=== PATIENT | female | born 1990 | race Caucasian/White ===

== ENCOUNTER 2018-03-15 05:43 | Day surgery (SDC) | payer OTHER ==
[2018-03-15] MEDS ORDERED: NEOMYC/POLYMYX/BACIT 30 GM OINT (06:56)
[2018-03-15] MEDS ORDERED: POLYMYXIN/BACITRACIN 1L IRRIG (06:56)
[2018-03-15 07:00] LABS: ADD MAN DIFF? NO
[2018-03-15] MEDS ORDERED: ACETAMINOPHEN 1000 MG/100 ML IVPB (07:00)
[2018-03-15] MEDS ORDERED: CEFAZOLIN 1 GM INJ ×2 (07:00→11:17)
[2018-03-15] MEDS ORDERED: PROPOFOL 200 MG INJ (07:00)
[2018-03-15 07:01] LABS: BASOPHILS % 0.3 % (0.0-2.0); EOSINOPHILS # 0.2 10^3/ul (0.0-0.5); EOSINOPHILS % 2.9 % (0.0-7.0); HEMATOCRIT 41.7 % (37.0-47.0); HEMOGLOBIN 13.8 g/dl (12.0-16.0); LYMPHOCYTES # 2.5 10^3/ul (0.8-2.9); LYMPHOCYTES % 33.9 % (15.0-51.0); MEAN CORPUSCULAR HGB CONC 33.1 g/dl (32.0-37.0); MEAN CORPUSCULAR VOLUME 90.7 fl (82.0-101.0); MEAN PLATELET VOLUME 11.5 fl (7.4-10.4); MONOCYTE # 0.5 10^3/ul (0.3-0.9); MONOCYTES % 7.2 % (0.0-11.0); NEUTROPHIL # 4.1 10^3/ul (1.6-7.5); NEUTROPHILS % 55.3 % (39.0-77.0); PLATELET COUNT 213 10^3/UL (140-415); RED CELL DISTRIBUTION WIDTH 12.8 % (11.5-14.5)
[2018-03-15 07:01] LABS: WHITE BLOOD COUNT 7.5 10^3/ul (4.8-10.8)
[2018-03-15] MEDS ORDERED: MIDAZOLAM 1 MG/ML 2 ML INJ (07:16)
[2018-03-15] MEDS ORDERED: ROCURONIUM 50 MG INJ ×2 (07:16→11:17)
[2018-03-15] MEDS ORDERED: PROPOFOL 20 ML (07:16)
[2018-03-15] MEDS ORDERED: ROPIVACAINE 0.5 % 30 ML VIAL (07:17)
[2018-03-15 07:19] LABS: ALANINE AMINOTRANSFERASE 31 IU/L (13-69); ALBUMIN/GLOBULIN RATIO 1.33; ALKALINE PHOSPHATASE 49 IU/L (42-121); ANION GAP 11 (8-16); ASPARTATE AMINO TRANSFERASE 18 IU/L (15-46); BILIRUBIN,INDIRECT 0.1 mg/dl (0-1.1); BILIRUBIN,TOTAL 0.1 mg/dl (0.2-1.3); BLOOD UREA NITROGEN 17 mg/dl (7-20); CALCIUM 9.4 mg/dl (8.4-10.2); CARBON DIOXIDE 26 mmol/L (21-31); CHLORIDE 109 mmol/L (97-110); CREATININE 0.84 mg/dl (0.44-1.00); GLUCOSE 102 mg/dl (70-220); POTASSIUM 3.9 mmol/L (3.5-5.1); SODIUM 142 mmol/L (135-144)
[2018-03-15 07:20] LABS: INR 0.87; PROTIME 11.9 Sec (11.9-14.9); PT RATIO 0.9
[2018-03-15 07:23] LABS: PARTIAL THROMBOPLASTIN TIME 22.2 Sec (25.0-35.0)
[2018-03-15] MEDS ORDERED: PROVENTIL HFA 6.7GM INHALER (07:59)
[2018-03-15] MEDS ORDERED: FENTAnyl 50 MCG/ML VIAL IV ×4 (08:00→12:30)
[2018-03-15] MEDS ORDERED: ALBUTEROL 0.083% (NEB) 2.5 MG/3 ML AMP HHN ×2 (08:00→12:30)
[2018-03-15] MEDS ORDERED: EPHEDrine SULFATE 50 MG/5 ML SYG IV ×2 (08:00→12:30)
[2018-03-15] MEDS ORDERED: MEPERIDINE 25 MG INJ IV ×2 (08:00→12:30)
[2018-03-15] MEDS ORDERED: OXYCODONE/ACETAMINOPHEN (5/325) TAB PO (08:00)
[2018-03-15] MEDS ORDERED: LABETALOL HCL 20MG INJ IV ×2 (08:00→12:30)
[2018-03-15] MEDS ORDERED: DIPHENHYDRAMINE 50 MG INJ IV ×2 (08:00→12:30)
[2018-03-15] MEDS ORDERED: ONDANSETRON 4 MG INJ IV (08:00)
[2018-03-15] MEDS ORDERED: DIPHENHYDRAMINE 50 MG INJ (08:01)
[2018-03-15] MEDS ORDERED: HYDROCORTISONE 100 MG INJ (08:01)
[2018-03-15] MEDS ORDERED: DEXAMETHASONE 4 MG/ML 1 ML INJ (08:14)
[2018-03-15] MEDS ORDERED: METOCLOPRAMIDE 10 MG INJ (08:14)
[2018-03-15] MEDS ORDERED: ONDANSETRON 4 MG INJ ×2 (08:14→12:22)
[2018-03-15] MEDS ORDERED: PHENYLephrine (100 MCG/ML) 5ML SYG (08:40)
[2018-03-15] MEDS ORDERED: PHENYLephrine 10 MG INJ (08:59)
[2018-03-15] MEDS ORDERED: hydrALAzine 20 MG INJ (09:38)
[2018-03-15] MEDS ORDERED: LABETALOL HCL 20MG INJ (09:38)
[2018-03-15] MEDS: HEPARIN 1000 UNITS/ML 10 ML INJ (09:51)
[2018-03-15] MEDS: SODIUM CL BACTERIOSTATIC 30 ML INJ (09:51)
[2018-03-15] MEDS ORDERED: SUGAMMADEX SODIUM 200 MG/2 ML VIAL IV (11:29)
[2018-03-15] MEDS: morphine 2 MG INJ IV (12:13)
[2018-03-15] MEDS ORDERED: morphine (1 MG/ML) 10ML SYRINGE IV ×3 (12:30)
[2018-03-15] MEDS ORDERED: hydrALAzine 20 MG INJ IV (12:30)
[2018-03-15] MEDS ORDERED: METOCLOPRAMIDE 10 MG INJ IV (12:30)
[2018-03-15] MEDS: ONDANSETRON 4 MG INJ IV (12:31)
[2018-03-15] MEDS: FENTAnyl 50 MCG/ML VIAL IV (12:36)
== END 2018-03-15 14:04 | disposition home or self-care (01) ==
LOC: SDS 05:43
DX: S82.852K Displaced trimalleolar fracture of left lower leg, subsequent encounter for closed fracture with nonunion (principal); X58.XXXD Exposure to other specified factors, subsequent encounter; M65.872 Other synovitis and tenosynovitis, left ankle and foot; M94.272 Chondromalacia, left ankle and joints of left foot; M93.272 Osteochondritis dissecans, left ankle and joints of left foot; J45.909 Unspecified asthma, uncomplicated; E66.01 Morbid (severe) obesity due to excess calories; Z68.42 Body mass index [BMI] 45.0-49.9, adult
CPT/HCPCS: 27823; 71045; 73610; 80053; 82306; 85025; 85610; 85730; 87070; 87075; 88300